=== PATIENT | male | born 1945 | race Hispanic/Latino ===

== ENCOUNTER → 2021-11-09 | Outpatient (CLI) | payer OTHER | END | disposition home or self-care (01) | LOC: SHCH 13:56 | PROVIDERS: ATTEND Internal Medicine Cardiovascular Disease | DX: I65.23 Occlusion and stenosis of bilateral carotid arteries (principal); R09.89 Other specified symptoms and signs involving the circulatory and respiratory systems | CPT/HCPCS: 93880 ==

== ENCOUNTER → 2021-11-13 | Outpatient (CLI) | payer OTHER ==
[2021-11-13 12:39] LABS: ALBUMIN 3.6 g/dL (3.5-5.0); BILIRUBIN,TOTAL 0.3 mg/dL (0.2-1.0); CREATININE 1.1 mg/dL (0.5-1.5); POTASSIUM 4.6 mmol/L (3.5-5.1); TOTAL PROTEIN, SERUM 7.7 g/dL (6.0-8.3)
== END | disposition home or self-care (01) ==
LOC: DAH 10:00 → EDSTATUS 11-15 12:11
PROVIDERS: ATTEND Internal Medicine Cardiovascular Disease
DX: I10 Essential (primary) hypertension (principal)
CPT/HCPCS: 36415; 80053

== ENCOUNTER 2022-01-16 05:54 | Day surgery (SDC) | payer OTHER ==
[2022-01-11 13:41] LABS: BASOPHILS % (AUTO) 0.3 % (0.0-5.0); EOSINOPHILS % (AUTO) 0.7 % (0.0-8.0); HEMATOCRIT 42.7 % (42-54); LYMPHOCYTES % (AUTO) 22.7 % (21.0-51.0); MEAN CORPUSCULAR HEMOGLOBIN 30.4 pg (27.0-33.0); MEAN CORPUSCULAR HGB CONC 32.1 g/dL (32.0-36.0); MEAN CORPUSCULAR VOLUME 94.7 fL (79-99); MONOCYTES % (AUTO) 6.4 % (3.0-13.0); NEUTROPHILS % (AUTO) 69.4 % (40.0-77.0); PLATELET COUNT (AUTO) 305 K/uL (130-400); RED BLOOD CELL COUNT(AUTO) 4.51 MIL/uL (4.50-6.20); RED CELL DISTRIBUTION WIDTH 13.1 % (11.0-15.5); WHITE BLOOD COUNT (AUTO) 11.9 K/uL (4.8-10.8)
[2022-01-11 13:50] LABS: CREATININE 0.8 mg/dL (0.5-1.5); POTASSIUM 4.2 mmol/L (3.5-5.1)
[2022-01-11 13:52] LABS: APPEARANCE,URINE CLEAR (CLEAR); BILIRUBIN,URINE NEGATIVE (NEGATIVE); COLOR,URINE YELLOW (YELLOW); GLUCOSE, URINE (UA) NEGATIVE (NEGATIVE); KETONES,URINE NEGATIVE (NEGATIVE); LEUKOCYTE ESTERASE ,URINE NEGATIVE (NEGATIVE); NITRATE,URINE NEGATIVE (NEGATIVE); OCCULT BLOOD,URINE NEGATIVE (NEGATIVE); PROTEIN,URINE NEGATIVE (NEGATIVE); UROBILINOGEN,URINE 0.2 mg/dL (0.2-1.0)
[2022-01-11 14:06] LABS: INR 0.97 (0.85-1.15); PROTHROMBIN TIME 10.6 SEC (9.6-11.6)
[2022-01-11 14:07] LABS: PARTIAL THROMBOPLASTIN TIME 27.6 SEC (26.3-35.5)
[2022-01-15 09:37] VITALS: BP 161/81
[2022-01-16] VITALS (12 sets, daily range): BP systolic 83–154; BP diastolic 31–65
[~2022-01-16] VITALS: Ht 180.3 cm; Wt 75.3 kg
[~2022-01-16 05:54] MED LIST: ADVAIR DISKUS IH; ALBUTER IH; ASCO100031 PO; LACT10SO62 PO; LOSA25TA41 PO; METO25TA6 PO; MONT-39 PO; ROSU20TA31 PO; VITA1TAB22 PO; VITAMIN D3 PO
[2022-01-16] MEDS ORDERED: NITROGLYCERIN 50MG VIAL ONE (07:12)
[2022-01-16] MEDS ORDERED: IODIXANOL 320 MG/ML 100 ML VIAL ONE (07:12)
[2022-01-16] MEDS ORDERED: LIDOCAINE HCL-MPF 2% 5ML VIAL ONE (07:12)
[2022-01-16] MEDS ORDERED: HEPARIN 10,000 UNIT/10ML (1,000 UNIT/ML) VIAL ONE (07:13)
[2022-01-16] MEDS ORDERED: MIDAZOLAM HCL 1 MG/ML 2ML VIAL ONE (07:39)
[2022-01-16] MEDS ORDERED: FENTANYL CITRATE PF 50 MCG/1 ML 2ML VIAL ONE (07:39)
[2022-01-16] MEDS ORDERED: 0.9%NACL 1000ML 1,000 ML IV ONE (07:40)
[2022-01-16] MEDS ORDERED: ASPIRIN 325MG EC TAB PO ONE (08:25)
[2022-01-16] MEDS ORDERED: CLOPIDOGREL 300MG TAB ONE (08:26)
[2022-01-16] MEDS ORDERED: HYDRALAZINE 20MG/ML VIAL ONE (09:49)
[2022-01-16] MEDS ORDERED: DEXTROSE 50%-WATER 50 ML DISP.SYRIN IV PRN (10:30)
[2022-01-16] MEDS ORDERED: GLUCAGON 1MG KIT 1 MG ML IM PRN (10:30)
== END 2022-01-16 15:05 | disposition home or self-care (01) ==
LOC: CLH 05:54 → DAH 05:54 → CLH 15:05
PROVIDERS: ATTEND Internal Medicine Cardiovascular Disease
DX: I70.238 Atherosclerosis of native arteries of right leg with ulceration of other part of lower leg (principal); I70.92 Chronic total occlusion of artery of the extremities; I10 Essential (primary) hypertension; E78.5 Hyperlipidemia, unspecified; J44.9 Chronic obstructive pulmonary disease, unspecified; Z79.899 Other long term (current) drug therapy; Z79.01 Long term (current) use of anticoagulants; Z79.82 Long term (current) use of aspirin; Z72.89 Other problems related to lifestyle; Z87.891 Personal history of nicotine dependence; Z82.49 Family history of ischemic heart disease and other diseases of the circulatory system; Z83.3 Family history of diabetes mellitus
CPT/HCPCS: 80048; 85025; 85610; 85730; 81003; 36415 ×2; 71045; 93005; 75716; 36246; 85347; C1894 ×2; C1769 ×3; C1893; C1760; C1724 ×3; J3010; J7030; J0360; J1644 ×3; J2250; J3490 ×2; Q9967; A4215; A4222; A4221; A4663; A4216; A4606; A4223 ×3; 36247; 99156; 99157

== ENCOUNTER 2022-02-20 07:51 | Day surgery (SDC) | payer OTHER ==
[2022-02-18 13:34] LABS: BASOPHILS % (AUTO) 0.5 % (0.0-5.0); EOSINOPHILS % (AUTO) 0.9 % (0.0-8.0); HEMATOCRIT 40.8 % (42-54); LYMPHOCYTES % (AUTO) 18.4 % (21.0-51.0); MEAN CORPUSCULAR HEMOGLOBIN 30.5 pg (27.0-33.0); MEAN CORPUSCULAR HGB CONC 32.4 g/dL (32.0-36.0); MEAN CORPUSCULAR VOLUME 94.2 fL (79-99); MONOCYTES % (AUTO) 6.8 % (3.0-13.0); NEUTROPHILS % (AUTO) 72.7 % (40.0-77.0); PLATELET COUNT (AUTO) 311 K/uL (130-400); RED BLOOD CELL COUNT(AUTO) 4.33 MIL/uL (4.50-6.20); RED CELL DISTRIBUTION WIDTH 13.1 % (11.0-15.5); WHITE BLOOD COUNT (AUTO) 10.2 K/uL (4.8-10.8)
[2022-02-18 13:41] LABS: POTASSIUM 4.2 mmol/L (3.5-5.1)
[2022-02-18 13:44] LABS: INR 0.98 (0.85-1.15); PROTHROMBIN TIME 10.7 SEC (9.6-11.6)
[2022-02-18 13:46] LABS: PARTIAL THROMBOPLASTIN TIME 26.4 SEC (26.3-35.5)
[2022-02-19 11:11] VITALS: BP 144/71
[2022-02-20] VITALS (9 sets, daily range): BP systolic 116–164; BP diastolic 52–69
[~2022-02-20] VITALS: Ht 180.3 cm; Wt 77.8 kg
[~2022-02-20 07:51] MED LIST changes: +ALBU1.252 IH; -ALBUTER IH; +ANTI1CAP5 PO; +ASPI-1005 PO; +IRON PO; -LACT10SO62 PO; +METO-408 PO; -METO25TA6 PO
[2022-02-20] MEDS ORDERED: 0.9%NACL 1000ML 1,000 ML IV SCH (08:00)
[2022-02-20] MEDS ORDERED: HEPARIN 10,000 UNIT/10ML (1,000 UNIT/ML) VIAL ONE ×2 (09:59→11:58)
[2022-02-20] MEDS ORDERED: NICARDIPINE 25MG INJ IV ONE (10:00)
[2022-02-20] MEDS ORDERED: FENTANYL CITRATE PF 50 MCG/1 ML 2ML VIAL ONE ×2 (10:00→12:33)
[2022-02-20] MEDS ORDERED: MIDAZOLAM HCL 1 MG/ML 2ML VIAL ONE ×2 (10:00→12:33)
[2022-02-20] MEDS ORDERED: IODIXANOL 320 MG/ML 100 ML VIAL ONE (10:00)
[2022-02-20] MEDS ORDERED: NITROGLYCERIN 50MG VIAL ONE (10:00)
[2022-02-20] MEDS ORDERED: LIDOCAINE HCL-MPF 0.5% 50ML VIAL IJ ONE (10:18)
[2022-02-20] MEDS ORDERED: ASPIRIN 325MG EC TAB PO ONE (12:53)
[2022-02-20] MEDS ORDERED: CLOPIDOGREL 300MG TAB ONE (12:53)
== END 2022-02-20 17:10 | disposition home or self-care (01) ==
LOC: DAH 07:51
PROVIDERS: ATTEND Internal Medicine Cardiovascular Disease
DX: I70.238 Atherosclerosis of native arteries of right leg with ulceration of other part of lower leg (principal); I70.92 Chronic total occlusion of artery of the extremities; I10 Essential (primary) hypertension; E78.5 Hyperlipidemia, unspecified; J44.9 Chronic obstructive pulmonary disease, unspecified; Z79.01 Long term (current) use of anticoagulants; Z79.899 Other long term (current) drug therapy; Z79.82 Long term (current) use of aspirin; Z72.89 Other problems related to lifestyle; Z82.49 Family history of ischemic heart disease and other diseases of the circulatory system; Z83.3 Family history of diabetes mellitus; Z87.891 Personal history of nicotine dependence; Z98.890 Other specified postprocedural states
CPT/HCPCS: 80048; 85025; 85610; 85730; 36415; 71045; 93005; 75710; C9766; C1894; C1725 ×2; C1769 ×3; C1887 ×2; C1724; C1727 ×2; C2623; C9774; J3010 ×2; J7030; J3490 ×3; J1644 ×5; J2250 ×2; Q9967; A4215; A4222; A4221; A4663; A4216; A4606; A4223 ×3; 85347; 99156; 99157

== ENCOUNTER 2022-03-27 07:39 | Day surgery (SDC) | payer OTHER ==
[2022-03-21 12:12] LABS: BASOPHILS % (AUTO) 0.4 % (0.0-5.0); EOSINOPHILS % (AUTO) 0.9 % (0.0-8.0); HEMATOCRIT 38.6 % (42-54); MEAN CORPUSCULAR HEMOGLOBIN 29.8 pg (27.0-33.0); MEAN CORPUSCULAR HGB CONC 32.4 g/dL (32.0-36.0); MEAN CORPUSCULAR VOLUME 92.1 fL (79-99); NEUTROPHILS % (AUTO) 65.1 % (40.0-77.0); PLATELET COUNT (AUTO) 292 K/uL (130-400); RED BLOOD CELL COUNT(AUTO) 4.19 MIL/uL (4.50-6.20); RED CELL DISTRIBUTION WIDTH 13.2 % (11.0-15.5)
[2022-03-21 12:19] LABS: CREATININE 0.8 mg/dL (0.5-1.5); POTASSIUM 4.2 mmol/L (3.5-5.1)
[2022-03-21 12:31] LABS: PROTHROMBIN TIME 10.9 SEC (9.6-11.6)
[2022-03-21 12:32] LABS: PARTIAL THROMBOPLASTIN TIME 28.2 SEC (26.3-35.5)
[2022-03-26 09:52] VITALS: BP 171/78
[~2022-03-27] VITALS: Ht 180.3 cm; Wt 79.7 kg
[2022-03-27] VITALS (8 sets, daily range): BP systolic 105–131; BP diastolic 42–59
[~2022-03-27 07:39] MED LIST changes: +CLOP75TA32 PO
[2022-03-27] MEDS ORDERED: 0.9%NACL 1000ML 1,000 ML IV ONE (09:37)
[2022-03-27] MEDS ORDERED: HEPARIN 10,000 UNIT/10ML (1,000 UNIT/ML) VIAL ONE ×2 (11:37→13:56)
[2022-03-27] MEDS ORDERED: LIDOCAINE HCL 1% 20 ML VIAL ONE (11:37)
[2022-03-27] MEDS ORDERED: NITROGLYCERIN 50MG VIAL ONE (11:37)
[2022-03-27] MEDS ORDERED: FENTANYL CITRATE PF 50 MCG/1 ML 2ML VIAL ONE (11:38)
[2022-03-27] MEDS ORDERED: IODIXANOL 320 MG/ML 100 ML VIAL ONE (11:38)
[2022-03-27] MEDS ORDERED: MIDAZOLAM HCL 1 MG/ML 2ML VIAL ONE ×2 (11:38→14:38)
[2022-03-27] MEDS ORDERED: NICARDIPINE 25MG INJ IV ONE (11:50)
[2022-03-27] MEDS ORDERED: CLOPIDOGREL 300MG TAB ONE (12:57)
[2022-03-27] MEDS ORDERED: HYDRALAZINE 20MG/ML VIAL ONE (13:37)
[2022-03-27] MEDS ORDERED: 0.9%NACL 1000ML 1,000 ML IV SCH (15:00)
[2022-03-27] MEDS ORDERED: GLUCAGON 1MG KIT 1 MG ML IM PRN (15:00)
[2022-03-27] MEDS ORDERED: DEXTROSE 50%-WATER 50 ML DISP.SYRIN IV PRN (15:00)
== END 2022-03-27 19:00 | disposition home or self-care (01) ==
LOC: DAH 07:39
PROVIDERS: ATTEND Internal Medicine Cardiovascular Disease
DX: I70.211 Atherosclerosis of native arteries of extremities with intermittent claudication, right leg (principal); S81.801A Unspecified open wound, right lower leg, initial encounter; I70.92 Chronic total occlusion of artery of the extremities; I10 Essential (primary) hypertension; J44.9 Chronic obstructive pulmonary disease, unspecified; E78.5 Hyperlipidemia, unspecified; Z79.899 Other long term (current) drug therapy; Z79.01 Long term (current) use of anticoagulants; Z87.891 Personal history of nicotine dependence; Z72.89 Other problems related to lifestyle; Z79.82 Long term (current) use of aspirin; Z82.49 Family history of ischemic heart disease and other diseases of the circulatory system; Z83.3 Family history of diabetes mellitus; X58.XXXA Exposure to other specified factors, initial encounter
CPT/HCPCS: 80048; 85025; 85610; 85730; 36415; 71045; 93005; 75716; C9764; C1725 ×2; C1894 ×3; C1769 ×4; C1760; C1893; C1887 ×2; C2623; J3010; J7030; J0360; J3490 ×2; J1644 ×4; J2250 ×2; Q9967; A4215; A4222; A4221; A4663; A4216; A4606; A4223 ×3; 75774; 99156; 99157

== ENCOUNTER 2022-06-05 06:41 | Day surgery (SDC) | payer OTHER ==
[2022-06-03 10:46] LABS: BASOPHILS % (AUTO) 0.5 % (0.0-5.0); EOSINOPHILS % (AUTO) 0.9 % (0.0-8.0); HEMATOCRIT 39.9 % (42-54); LYMPHOCYTES % (AUTO) 23.1 % (21.0-51.0); MEAN CORPUSCULAR HEMOGLOBIN 29.3 pg (27.0-33.0); MEAN CORPUSCULAR HGB CONC 32.3 g/dL (32.0-36.0); MEAN CORPUSCULAR VOLUME 90.7 fL (79-99); MONOCYTES % (AUTO) 9.2 % (3.0-13.0); NEUTROPHILS % (AUTO) 65.7 % (40.0-77.0); PLATELET COUNT (AUTO) 312 K/uL (130-400); RED CELL DISTRIBUTION WIDTH 13.4 % (11.0-15.5); WHITE BLOOD COUNT (AUTO) 8.5 K/uL (4.8-10.8)
[2022-06-03 10:58] LABS: INR 0.98 (0.85-1.15); PROTHROMBIN TIME 10.7 SEC (9.6-11.6)
[2022-06-03 11:07] LABS: CREATININE 0.9 mg/dL (0.5-1.5); POTASSIUM 4.7 mmol/L (3.5-5.1)
[2022-06-03 11:14] LABS: B-TYPE NATRIURETIC PEPTIDE 121 pg/mL (0-100)
[2022-06-04 11:00] VITALS: BP 196/77
[~2022-06-05] VITALS: Ht 180.3 cm; Wt 81.4 kg
[2022-06-05] VITALS (12 sets, daily range): BP systolic 103–179; BP diastolic 44–99
[~2022-06-05 06:41] MED LIST changes: -ADVAIR DISKUS IH; -ANTI1CAP5 PO; -ASPI-1005 PO; +FLUT16H NASAL
[2022-06-05] MEDS ORDERED: 0.9%NACL 1000ML 1,000 ML IV ONE (07:24)
[2022-06-05] MEDS ORDERED: IODIXANOL 320 MG/ML 100 ML VIAL ONE (08:58)
[2022-06-05] MEDS ORDERED: HEPARIN 10,000 UNIT/10ML (1,000 UNIT/ML) VIAL ONE (08:58)
[2022-06-05] MEDS ORDERED: NITROGLYCERIN 50MG VIAL ONE (08:58)
[2022-06-05] MEDS ORDERED: NICARDIPINE 25MG INJ IV ONE (08:58)
[2022-06-05] MEDS ORDERED: MIDAZOLAM HCL 1 MG/ML 2ML VIAL ONE (08:59)
[2022-06-05] MEDS ORDERED: FENTANYL CITRATE PF 50 MCG/1 ML 2ML VIAL ONE (08:59)
[2022-06-05] MEDS ORDERED: LIDOCAINE HCL 400MG/20ML VIAL ONE (08:59)
[2022-06-05] MEDS ORDERED: HYDRALAZINE 20MG/ML VIAL ONE (10:01)
[2022-06-05] MEDS ORDERED: ASPIRIN 325MG EC TAB PO ONE (10:05)
[2022-06-05] MEDS ORDERED: CLOPIDOGREL 300MG TAB ONE (10:05)
[2022-06-05] MEDS ORDERED: 0.9%NACL 1000ML 1,000 ML IV SCH (13:00)
[2022-06-05] MEDS ORDERED: DEXTROSE 50%-WATER 50 ML DISP.SYRIN IV PRN (13:00)
[2022-06-05] MEDS ORDERED: GLUCAGON 1MG KIT 1 MG ML IM PRN (13:00)
== END 2022-06-05 16:15 | disposition home or self-care (01) ==
LOC: DAH 06:41
PROVIDERS: ATTEND Internal Medicine Cardiovascular Disease
DX: I70.212 Atherosclerosis of native arteries of extremities with intermittent claudication, left leg (principal); I10 Essential (primary) hypertension; E78.5 Hyperlipidemia, unspecified; J44.9 Chronic obstructive pulmonary disease, unspecified; Z72.89 Other problems related to lifestyle; Z79.01 Long term (current) use of anticoagulants; Z79.899 Other long term (current) drug therapy; Z98.890 Other specified postprocedural states; Z87.891 Personal history of nicotine dependence; Z79.82 Long term (current) use of aspirin
CPT/HCPCS: 80048; 83880; 85025; 85610; 85730; 36415; 71045; 93005; 75716; 96374; 96375; 85347; C9766; C1725 ×2; C1894 ×2; C1769 ×8; C1760; C1893; C1887 ×3; C1724; C2623; J3010; J3490 ×3; J7030; J0360; J1644 ×3; J2250; Q9967; A4222; A4221; A4663; A4216; A4606; A4223 ×3; 99156; 99157

== ENCOUNTER 2022-07-10 05:52 | Day surgery (SDC) | payer OTHER ==
[2022-07-05 12:36] VITALS: BP 166/71
[2022-07-05 13:10] LABS: BASOPHILS % (AUTO) 0.4 % (0.0-5.0); EOSINOPHILS % (AUTO) 1.1 % (0.0-8.0); HEMATOCRIT 41.7 % (42-54); LYMPHOCYTES % (AUTO) 23.5 % (21.0-51.0); MEAN CORPUSCULAR HEMOGLOBIN 29.4 pg (27.0-33.0); MEAN CORPUSCULAR HGB CONC 32.6 g/dL (32.0-36.0); MEAN CORPUSCULAR VOLUME 90.3 fL (79-99); MONOCYTES % (AUTO) 6.8 % (3.0-13.0); NEUTROPHILS % (AUTO) 67.1 % (40.0-77.0); PLATELET COUNT (AUTO) 350 K/uL (130-400); RED BLOOD CELL COUNT(AUTO) 4.62 MIL/uL (4.50-6.20); RED CELL DISTRIBUTION WIDTH 13.4 % (11.0-15.5); WHITE BLOOD COUNT (AUTO) 10.4 K/uL (4.8-10.8)
[2022-07-05 13:17] LABS: POTASSIUM 4.3 mmol/L (3.5-5.1)
[2022-07-05 13:21] LABS: PROTHROMBIN TIME 10.9 SEC (9.6-11.6)
[2022-07-05 13:23] LABS: PARTIAL THROMBOPLASTIN TIME 25.5 SEC (26.3-35.5)
[2022-07-05 14:18] LABS: B-TYPE NATRIURETIC PEPTIDE 49 pg/mL (0-100)
[2022-07-10] VITALS (10 sets, daily range): BP systolic 125–168; BP diastolic 52–72
[~2022-07-10] VITALS: Ht 180.3 cm; Wt 77.4 kg
[~2022-07-10 05:52] MED LIST changes: +0.9% NACL 500ML IV.SOLN 500 ML IV SCH; +AEC81 PO; +FISH1CAP27 PO; -FLUT16H NASAL; -VITAMIN D3 PO
[2022-07-10] MEDS ORDERED: HEPARIN 10,000 UNIT/10ML (1,000 UNIT/ML) VIAL ONE (07:13)
[2022-07-10] MEDS ORDERED: NITROGLYCERIN 50MG VIAL ONE (07:13)
[2022-07-10] MEDS ORDERED: MIDAZOLAM HCL 1 MG/ML 2ML VIAL ONE ×2 (07:13→09:24)
[2022-07-10] MEDS ORDERED: IODIXANOL 320 MG/ML 100 ML VIAL ONE (07:13)
[2022-07-10] MEDS ORDERED: LIDOCAINE HCL 1% MDV 50ML VIAL ONE (07:14)
[2022-07-10] MEDS ORDERED: FENTANYL CITRATE PF 50 MCG/1 ML 2ML VIAL ONE ×2 (07:14→09:24)
[2022-07-10] MEDS ORDERED: NICARDIPINE 25MG INJ IV ONE (07:30)
[2022-07-10] MEDS ORDERED: CLOPIDOGREL 300MG TAB ONE ×2 (08:24→08:25)
[2022-07-10] MEDS ORDERED: DEXTROSE 50%-WATER 50 ML DISP.SYRIN IV PRN (10:30)
[2022-07-10] MEDS ORDERED: 0.9%NACL 1000ML 1,000 ML IV SCH (10:30)
[2022-07-10] MEDS ORDERED: GLUCAGON 1MG KIT 1 MG ML IM PRN (10:30)
== END 2022-07-10 14:00 | disposition home or self-care (01) ==
LOC: DAH 05:52
PROVIDERS: ATTEND Internal Medicine Cardiovascular Disease
DX: I70.212 Atherosclerosis of native arteries of extremities with intermittent claudication, left leg (principal); I70.92 Chronic total occlusion of artery of the extremities; I10 Essential (primary) hypertension; E78.5 Hyperlipidemia, unspecified; J44.9 Chronic obstructive pulmonary disease, unspecified; Z79.82 Long term (current) use of aspirin; Z79.01 Long term (current) use of anticoagulants; Z79.899 Other long term (current) drug therapy; Z72.89 Other problems related to lifestyle; Z87.891 Personal history of nicotine dependence; Z83.3 Family history of diabetes mellitus; Z82.49 Family history of ischemic heart disease and other diseases of the circulatory system
CPT/HCPCS: 80048; 83880; 85025; 85610; 85730; 36415; 93005; 75716; 85347; C9774; C1894 ×2; C1769 ×4; C1760; C1893; C1724; C1887; C2623; C1725 ×2; C1727; C9766; J3010 ×2; J3490 ×3; J1644 ×2; J2250 ×2; Q9967; A4215; A4222; A4221; A4663; A4216; A4606; A4223 ×3; 37225; 96360; 96361; 99156; 99157

== ENCOUNTER → 2024-03-18 | Outpatient (CLI) | payer OTHER ==
[~2024-03-18] MED LIST changes: -0.9% NACL 500ML IV.SOLN 500 ML IV SCH; -ROSU20TA31 PO; +ROSU20TA98 PO; +VITA-427 PO; -VITA1TAB22 PO
--- NOTE | 2024-03-25 09:01 | HMCSR ---
APPROVED REPORT Bilateral Lower Extremity Venous Study for DVT., Venous Competence.Study performed with patient in up right position or in reverse Trendelenburg. Vein Imaging CFV (R): Normal flow, augmentation and compression. No evidence of DVT, Diameter 12.3 mm SFJ (R): Normal flow, augmentation and compression. No evidence of DVT. FEM (R): Normal flow, augmentation and compression. No evidence of DVT, 333 ms of DVR. POP (R): Normal flow, augmentation and compression. No evidence of DVT. DFV (R): Normal flow, augmentation and compression. No evidence of DVT. PTV (R): Normal flow, augmentation and compression. No evidence of DVT. Peroneals (R): Normal flow, augmentation and compression. No evidence of DVT. GAS (R): Normal flow, augmentation and compression. No evidence of DVT. CFV (L): Normal flow, augmen tation and compression. No evidence of DVT, Diameter 10.8 mm SFJ (L): Normal flow, augmentation and compression. No evidence of DVT. FEM (L): Normal flow, augmentation and compression. No evidence of DVT, 711 ms of DVR. POP (L): Normal flow, augmentation and compression. No evidence of DVT, 506 ms of DVR. DFV (L): Normal flow, augmentation and compression. No evidence of DVT. PTV (L): Normal flow, augmentation and compression. No evidence of DVT. Peroneals (L): Normal flow, augmentation and compression. No evidence of DVT. GAS (L): Normal flow, augmentation and compression. No evidence of DVT. Technologist Impression The deep veins of the bilateral lower extremities appear patent and compressible without evidence of thrombus. Deep venous reflux demonstrated in the bilateral femoral veins. RGSV Junction 3.6 mm 250 ms Mid thigh 3.2 mm 178 ms Knee 3.1 mm 178 ms Mid- calf 2.2 mm 0 ms RSSV Prox 4.3 mm 233 ms Mid 2.2 mm 250 ms LGSV Junction 5.0 mm 339 ms Mid thigh 2.7 mm 333 ms Knee 2.6 mm 0 ms Mid-calf 1.2 mm 0 ms LSSV Prox 1.5 mm 0 ms Mid 1.8 mm 0 ms Conclusion The deep veins of the bilateral lower extremities appear patent and compressible without evidence of thrombus. There is significant deep venous reflux seen in the left SFV (711 ms) and left popliteal vein (506 ms ). There was no significant deep venous reflux seen in the right lower extremity. There was no significant superficial venous reflux seen in either lower extremity. The above-mentioned findings are diagnostic chronic venous insufficiency affecting the left lower ext remity. Conclusion The deep veins of the bilateral lower extremities appear patent and compressible without evidence of thrombus. There is significant deep venous reflux seen in the left SFV (711 ms) and left popliteal vein (506 ms ). There was no significant deep venous reflux seen in the right lower extremity. There was no significant superficial venous reflux seen in either lower extremity. The above-mentioned findings are diagnostic chronic venous insufficiency affecting the left lower ext remity.
== END | disposition home or self-care (01) ==
LOC: SHCH 15:05
PROVIDERS: ATTEND Internal Medicine Cardiovascular Disease
DX: I87.2 Venous insufficiency (chronic) (peripheral) (principal); I73.9 Peripheral vascular disease, unspecified; M79.605 Pain in left leg; M79.604 Pain in right leg
CPT/HCPCS: 93970

== ENCOUNTER → 2024-05-24 | Outpatient (CLI) | payer OTHER ==
[2024-05-24] MEDS: REGADENOSON 0.4 MG/5 ML PF SYG IVP ONE (15:42)
== END | disposition home or self-care (01) ==
LOC: SHCH 08:08
PROVIDERS: ATTEND Internal Medicine Cardiovascular Disease
DX: I47.10 Supraventricular tachycardia, unspecified (principal); R07.9 Chest pain, unspecified
CPT/HCPCS: 78452; 93017; J2785; A9500 ×2